=== PATIENT | female | born 1965 ===

== ENCOUNTER 2022-01-26 05:42 | Observation (INO) ==
[2022-01-26] MEDS ORDERED: Buffered Lidocaine 1% SYRIN 1 ml INTRADERM ONE (06:00)
[2022-01-26] MEDS ORDERED: Lactated Ringers 1000 ml BAG 1,000 ML IV SCH (06:00)
[2022-01-26] MEDS ORDERED: ceFAZolin 2 GM in NS PREMIX 2 GM/100 ML BAG IVPB ONE (06:10)
[2022-01-26 06:40] LABS: Rapid COVID-19 Molecular Undetected (Undetected)
[2022-01-26] MEDS ORDERED: Bupivacaine 0.25% SDV 30 ML ONE (06:50)
[2022-01-26] MEDS ORDERED: Ondansetron 4 mg VIAL 2 MG/ML 2 ml VIAL ONE (07:02)
[2022-01-26] MEDS ORDERED: fentaNYL 100 mcg/2 ml 50 MCG/ML VIAL ONE ×2 (07:02→11:17)
[2022-01-26] MEDS ORDERED: Dexamethasone IV 4 MG/ML VIAL 1 ml VIAL ONE (07:02)
[2022-01-26] MEDS ORDERED: Propofol 10 MG/ML 20 ML BTL ONE (07:02)
[2022-01-26] MEDS ORDERED: Lidocaine 2% PF 5 ML VIAL ONE (07:02)
[2022-01-26] MEDS ORDERED: Midazolam 2 mg/2 ml VIAL 1 mg/ml 2 ml VIAL (2 mg) ONE (07:05)
[2022-01-26] MEDS ORDERED: ROPIVACAINE 5 MG/ML 30 ML BTL (0.5%) ONE (07:22)
[2022-01-26] MEDS ORDERED: Phenylephrine IV 10 MG/ML 1 ml VIAL ONE (08:43)
[2022-01-26] MEDS ORDERED: Sevoflurane BOTTLE ONE (08:56)
[2022-01-26] MEDS ORDERED: Magnesium Hydroxide LIQ 30 ML UDC PO PRN (10:35)
[2022-01-26] MEDS ORDERED: Lactulose 30 ml UDC PO PRN (10:35)
[2022-01-26] MEDS ORDERED: Ondansetron ODT 4 mg TAB 4 MG TAB PO PRN (10:35)
[2022-01-26] MEDS ORDERED: Naloxone 0.4 mg VIAL 0.4 mg/ml 1 ml VIAL IV PRN (10:59)
[2022-01-26] MEDS ORDERED: HYDROmorphone 1 MG/1 ML SYRINGE IV PRN (10:59)
[2022-01-26] MEDS ORDERED: Acetaminophen IV 1 GM/100ML 1,000 MG/100 ML BAG IV PRN (10:59)
[2022-01-26] MEDS: fentaNYL 100 mcg/2 ml 50 MCG/ML VIAL IV PRN ×2 (11:18→11:57)
[2022-01-26] MEDS: Lactated Ringers 1000 ml BAG 1,000 ML IV SCH (13:14)
[2022-01-26] MEDS: ceFAZolin 1 GM in Dextrose 1 GM/50 ML BAG IV SCH ×2 (16:12→23:47)
[2022-01-26] MEDS: Magnesium Hydroxide LIQ 30 ML UDC PO SCH (20:17)
[2022-01-27] MEDS: Lactated Ringers 1000 ml BAG 1,000 ML IV SCH (02:45)
[2022-01-27] MEDS: ceFAZolin 1 GM in Dextrose 1 GM/50 ML BAG IV SCH (08:33)
[2022-01-27] MEDS ORDERED: Vitamin THERAPEUTIC TAB PO SCH (09:00)
[2022-01-27] MEDS ORDERED: COVID VACC, BIVAL MODERNA 50 MCG/0.5 ML SYR IM ONE (09:00)
[2022-01-27] MEDS ORDERED: Influenza vaccine *QUAD* *2022-23* 0.5 ML SYRINGE IM ONE (09:00)
[2022-01-27] MEDS: Magnesium Hydroxide LIQ 30 ML UDC PO SCH (10:08)
[2022-01-27 11:04] VITALS: BP 128/78
== END 2022-01-27 14:45 | disposition home or self-care (01) ==
LOC: OR 05:42 → SSU 05:42
PROVIDERS: ADMIT Physician Assistant; ATTEND Orthopaedic Surgery